=== PATIENT | female | born 1940 | race African-American/Black ===

== ENCOUNTER → 2016-12-02 | Outpatient (CLI) | payer MEDICARE, OTHER ==
[2015-05-10 10:54] VITALS: BP 165/83
[~2016-12-02] MED LIST: ATOR20TA58; ATOR40TA59; BUDE10.2; CLIN-44; GABA-585; HYDR-2666; HYDR-79; IBUP-1007; MELO-150; METF500T9; POTA10TA10; QUIN1TAB6; SITA100T
[2016-12-02 13:04] LABS: CREATININE 1.1 mg/dL (0.6-1.0); GFR 58.6
== END | disposition home or self-care (01) ==
LOC: LAB 12:14
PROVIDERS: ATTEND Psychiatry & Neurology Neurology
DX: M79.604 Pain in right leg (principal)
CPT/HCPCS: 36415; 82550; 82565; 84520

== ENCOUNTER → 2016-12-06 | Outpatient (CLI) | payer MEDICARE, OTHER ==
[2015-05-10 10:54] VITALS: BP 165/83
[~2016-12-06] MED LIST changes: +GADOBUTROL 7.5 MMOL/7.5 ML VIAL IV ONE
--- NOTE | 2016-12-06 10:42 | KCIC ---
PROCEDURE MRI lumbar spine without and with contrast HISTORY Lower extremity pain, low back pain, previous surgery TECHNIQUE Multiplanar, multi sequential pre and post contrast MR imaging was performed of the lumbar spine. Contrast: 6 cc Gadavist COMPARISON None FINDINGS Lumbar vertebral body stature is maintained. There has been posterolateral fusion with bilateral pedicle screws at L3-L4. Exam does not accurately evaluate integrity of hardware. There is negligible anterior spondylolisthesis L3-4 and L4-5. Conus terminates at T12-L1. There is moderate levoscoliosis centered about L2. There is mild degenerative disc disease L4-5 and L2-3, moderate narrowing of the L3-4 intervertebral disc space. There is edema of the L5 pedicles greater on the left. There are likely cysts of the bilateral renal pelves although difficult to entirely exclude hydronephrosis. L1-L2: There is moderate right facet degenerative change. Spinal canal is adequate. There is mild narrowing of the right neural foramen, left neural foramen adequate. L2-3: There is moderate to severe right facet degenerative change. There is mild buckling of the ligamentum flavum. There is mild narrowing of the far right lateral recess. There is mild to moderate narrowing of the right neural foramen, left neural foramen adequate. L3-4: There has been posterior decompression. Spinal canal is adequate. There is mild to moderate left and likely moderate right neural foramina compromise. L4-5: There is moderate facet degenerative change, fluid in the facet articulations bilaterally. There is mild buckling of the ligamentum flavum. There is minimal disc osteophyte complex and bulge relatively greater in the left lateral recess. There is mild left lateral recess stenosis. There is synovial cyst posterior to the left facet articulation. There is fairly severe narrowing of the left neural foramen, right neural foramen overall adequate. L5-S1: Spinal canal is adequate. There is mild to moderate facet degenerative change greater on the right. There is moderate left and mild right neural foramina compromise. IMPRESSION 1. There is moderate lumbar levoscoliosis. 2. There has been posterior decompression and posterolateral fusion at L3-4. 3. There is no significant lumbar spinal stenosis, mild left lateral recess stenosis L4-5 and mild right lateral recess stenosis L2-3. 4. There is neural foramina compromise as stated greatest on the left at L4-5, to a lesser degree bilaterally at L3-4, on the right at L2-3, and on the left at L5-S1. 5. Edema of the L5 pedicles greater on the left is more likely to be reactive/degenerative in etiology. There is multilevel lumbar facet degenerative change. 6. There are likely cysts of the renal pelves bilaterally although hydronephrosis especially on the right would be difficult to exclude. Electronically signed by: Jaron Juan MD (Dec 06, 2016 10:41:35)
== END | disposition home or self-care (01) ==
LOC: KCIC MRI 09:11
PROVIDERS: ATTEND Psychiatry & Neurology Neurology
DX: M51.36 Other intervertebral disc degeneration, lumbar region (principal); M43.16 Spondylolisthesis, lumbar region; M41.86 Other forms of scoliosis, lumbar region
CPT/HCPCS: 72158; A9585

== ENCOUNTER → 2017-05-03 | Outpatient (CLI) | payer MEDICARE, OTHER ==
[~2017-05-03] VITALS: Ht 157.5 cm; Wt 66.2 kg
[~2017-05-03] MED LIST changes: +BUPIVAC MPF-EPI 0.5%-1:200000 10 ML VIAL. INJ ONE; +BUPIVACAINE 0.5% 50 ML VIAL. IJ ONE; -CLIN-44; +CLIN150C14; -GADOBUTROL 7.5 MMOL/7.5 ML VIAL IV ONE; -HYDR-2666; +HYDR-2758; +IOHEXOL 300 MG/ML 50 ML VIAL. IART ONE; -MELO-150; +MELO15TA23; -POTA10TA10; +POTA10TA12; +TIZA4TAB PO; +methylPREDNISolone ACETATE 80 MG/ML VIAL. IM ONE
[2017-05-03 07:47] VITALS: BP 143/62
--- NOTE | 2017-05-03 10:25 | RAD ---
Indication right hip pain. Injection of the right hip, for purposes of pain management, was requested. Injection of the hip for purposes of pain management was discussed with the patient. The risks of infection and bleeding were outlined. The right femoral artery was palpated. An appropriate entry manager into the joint was marked. The anticipated trajectory of the needle was well removed from the femoral artery. The skin was prepped and draped in the routine fashion. Local anesthesia was accomplished with 1% lidocaine. A 22-gauge needle was passed fluoroscopically into the joint. Small amount of contrast was introduced confirming proper placement of the needle. Subsequently 80 mg of Depo-Medrol and 5 cc of Sensorcaine was administered into the joint. The patient tolerated the procedure unremarkably. 3 fluoroscopic images were obtained. Fluoroscopy time associated with the procedure was 0.7 minutes... IMPRESSION: Successful injection of the right hip for purposes of pain management
== END | disposition home or self-care (01) ==
LOC: RAD 07:00
PROVIDERS: ATTEND Nurse Practitioner Gerontology
DX: M16.11 Unilateral primary osteoarthritis, right hip (principal)
CPT/HCPCS: 20610; 77002; J1040; J3490; Q9967

== ENCOUNTER 2017-06-07 16:22 | Emergency (ER) | payer MEDICARE, OTHER ==
[~2017-06-07] VITALS: Ht 157.5 cm; Wt 66.7 kg
[~2017-06-07 16:22] MED LIST changes: -BUPIVAC MPF-EPI 0.5%-1:200000 10 ML VIAL. INJ ONE; -BUPIVACAINE 0.5% 50 ML VIAL. IJ ONE; -IOHEXOL 300 MG/ML 50 ML VIAL. IART ONE; +QUIN1TAB17; -QUIN1TAB6; -methylPREDNISolone ACETATE 80 MG/ML VIAL. IM ONE
[2017-06-07] MEDS ORDERED: fentaNYL PF VIAL 100 MCG/2 ML VIAL IV ONE (16:30)
[2017-06-07] MEDS ORDERED: ONDANSETRON PF 4 MG/2 ML VIAL. IV ONE (16:30)
[2017-06-07 16:47] LABS: BILIRUBIN,URINE NEGATIVE (NEG); GLUCOSE,URINE 250 mg/dL (NEG); NITRITE,URINE NEGATIVE (NEG); PH,URINE 5.5; PROTEIN,URINE NEGATIVE (NEG-TRACE); UROBILINOGEN,URINE 0.2 mg/dL (0.2 mg/dL)
[2017-06-07 16:58] LABS: BACTERIA,URINE FEW /HPF (0-FEW); RBC,URINE OCC /HPF (0-2); SQUAMOUS EPITHELIAL CELL,UR FEW /LPF
[2017-06-07 17:01] LABS: BASO % 0 % (0-3); EOS % 1 % (0-3); HEMOGLOBIN 13.2 g/dL (12.0-15.5); LYMPH # 1.2 x10^3/uL (1.0-4.8); LYMPH % 16 % (24-48); MEAN CORPUSCULAR HEMOGLOBIN 27 pg (25-35); MEAN CORPUSCULAR HGB CONC 32 g/dL (31-37); MEAN CORPUSCULAR VOLUME 84 fL (79-100); MONO % 4 % (0-9); NEUT % 79 % (31-73); PLATELET COUNT 162 x10^3/uL (140-400); RED BLOOD COUNT 4.87 x10^6/uL (3.50-5.40); RED CELL DISTRIBUTION WIDTH 15.6 % (11.5-14.5); WHITE BLOOD COUNT 7.5 x10^3/uL (4.0-11.0)
[2017-06-07 17:22] LABS: CREATININE 0.8 mg/dL (0.6-1.0); GFR 84.4; POTASSIUM 3.2 mmol/L (3.5-5.1)
[2017-06-07 17:28] LABS: ALBUMIN 3.4 g/dL (3.4-5.0); ALBUMIN/GLOBULIN RATIO 0.9 (1.0-1.7); TOTAL BILIRUBIN 0.2 mg/dL (0.2-1.0); TOTAL PROTEIN 7.2 g/dL (6.4-8.2)
--- NOTE | 2017-06-07 17:30 | PHYS DOC ---
Past Medical History Past Medical History: Arthritis, Diabetes-Type II, High Cholesterol, Hypertension, Other Additional Past Medical Histor: HYPOKALEMIA, SPINAL STENOSIS Past Surgical History: Hysterectomy, Tonsillectomy, Other Additional Past Surgical Histo: LEFT KNEE, LEFT FOOT, LEFT HAND, BACK SURGERY- SPINAL STENOSIS Alcohol Use: None Drug Use: None Adult General Chief Complaint Chief Complaint: ABDOMINAL PAIN HPI HPI Patient is a 77 year old female who presents with acute on set of lower abdominal pain starting approximately 20 minutes are to ED arrival while driving. Pain is severe and is described as sharp. It radiates to back. It is associated with nausea, no vomiting. , Chills, sweats. Patient reports constipation earlier today. Denies diarrhea. No history of AAA, dissection. No history of kidney stones. No prior abdominal surgery. Other acute symptoms or complaints. She arrives by EMS. No medications given prior to ED arrival. Review of Systems Review of Systems Review symptoms as per history of present illness. All other review symptoms are negative. Current Medications Current Medications Current Medications Medications (Trade) Dose Ordered Sig/Mina Start Time Stop Time Status Last Admin Dose Admin Fentanyl Citrate (Fentanyl 2ml Vial) 75 mcg 1X ONCE 06/07/17 16:30 06/07/17 16:31 DC 06/07/17 16:39 75 MCG Info (Do NOT chart on this entry -- for MONITORING) 1 each PRN DAILY PRN 06/07/17 17:45 06/07/17 20:40 DC Iohexol (Omnipaque 300 Mg/ml) 75 ml 1X ONCE 06/07/17 17:45 06/07/17 17:46 DC 06/07/17 17:51 75 ML Morphine Sulfate 4 mg 1X ONCE 06/07/17 17:45 06/07/17 17:47 DC 06/07/17 17:49 4 MG Ondansetron HCl (Zofran) 4 mg 1X ONCE 06/07/17 16:30 06/07/17 16:31 DC 06/07/17 16:39 4 MG Allergies Allergies Allergies Coded Allergies Type Severity Reaction Last Updated Verified cephalexin Allergy Intermediate 10/19/14 No nabumetone Allergy Intermediate 10/19/14 No Physical Exam Physical Exam Constitutional: Well developed, well nourished, moderate discomfort secondary to pain.[] Eyes: PERRLA, EOMI, conjunctiva normal, no discharge. [] Neck: Normal range of motion, no tenderness, supple, no stridor. [] Cardiovascular:Heart rate regular rhythm, no murmur [] Lungs & Thorax: Bilateral breath sounds clear to auscultation [] Abdomen: Bowel sounds normal, soft, no tenderness, nonpulsatile. [] Skin: Warm, dry. [] Back: No tenderness. [] Extremities: No tenderness, no cyanosis. [] Neurologic: Alert and oriented X 3, normal motor function, normal sensory function, no focal deficits noted. [] Psychologic: Affect normal, judgement normal, mood normal. [] Current Patient Data Vital Signs Vital Signs Date Time Temp Pulse Resp B/P (MAP) Pulse Ox O2 Delivery O2 Flow Rate FiO2 06/07/17 17:39 61 18 134/74 (94) 99 Room Air 06/07/17 16:25 98.5 98.5 Lab Values Laboratory Tests Test 06/07/17 16:30 06/07/17 16:45 Urine Collection Type Unknown Urine Color Yellow Urine Clarity Clear Urine pH 5.5 Urine Specific Gray 1.010 Urine Protein Negative mg/dL (NEG-TRACE) Urine Glucose (UA) 250 mg/dL (NEG) Urine Ketones (Stick) Negative mg/dL (NEG) Urine Blood Small (NEG) Urine Nitrite Negative (NEG) Urine Bilirubin Negative (NEG) Urine Urobilinogen Dipstick 0.2 mg/dL (0.2 mg/dL) Urine Leukocyte Esterase Negative (NEG) Urine RBC Occ /HPF (0-2) Urine WBC 1-4 /HPF (0-4) Urine Squamous Epithelial Cells Few /LPF Urine Bacteria Few /HPF (0-FEW) White Blood Count 7.5 x10^3/uL (4.0-11.0) Red Blood Count 4.87 x10^6/uL (3.50-5.40) Hemoglobin 13.2 g/dL (12.0-15.5) Hematocrit 41.0 % (36.0-47.0) Mean Corpuscular Volume 84 fL (79-100) Mean Corpuscular Hemoglobin 27 pg (25-35) Mean Corpuscular Hemoglobin Concent 32 g/dL (31-37) Red Cell Distribution Width 15.6 % (11.5-14.5) H Platelet Count 162 x10^3/uL (140-400) Neutrophils (%) (Auto) 79 % (31-73) H Lymphocytes (%) (Auto) 16 % (24-48) L Monocytes (%) (Auto) 4 % (0-9) Eosinophils (%) (Auto) 1 % (0-3) Basophils (%) (Auto) 0 % (0-3) Neutrophils # (Auto) 5.9 x10^3uL (1.8-7.7) Lymphocytes # (Auto) 1.2 x10^3/uL (1.0-4.8) Monocytes # (Auto) 0.3 x10^3/uL (0.0-1.1) Eosinophils # (Auto) 0.1 x10^3/uL (0.0-0.7) Basophils # (Auto) 0.0 x10^3/uL (0.0-0.2) Sodium Level 139 mmol/L (136-145) Potassium Level 3.2 mmol/L (3.5-5.1) L Chloride Level 105 mmol/L (98-107) Carbon Dioxide Level 27 mmol/L (21-32) Anion Gap 7 (6-14) Blood Urea Nitrogen 13 mg/dL (7-20) Creatinine 0.8 mg/dL (0.6-1.0) Estimated GFR (Cockcroft-Gault) 84.4 BUN/Creatinine Ratio 16 (6-20) Glucose Level 184 mg/dL (70-99) H Calcium Level 9.0 mg/dL (8.5-10.1) Total Bilirubin 0.2 mg/dL (0.2-1.0) Aspartate Amino Transferase (AST) 38 U/L (15-37) H Alanine Aminotransferase (ALT) 47 U/L (14-59) Alkaline Phosphatase 140 U/L (46-116) H Total Protein 7.2 g/dL (6.4-8.2) Albumin 3.4 g/dL (3.4-5.0) Albumin/Globulin Ratio 0.9 (1.0-1.7) L Lipase 195 U/L (73-393) Laboratory Tests 06/07/17 16:45 Laboratory Tests 06/07/17 16:45 EKG EKG [] Radiology/Procedures Radiology/Procedures [CT abdomen pelvis: Prominence of intrahepatic, extrahepatic bile ducts along with the main pancreatic duct is seen without underlying mass lesion identified per radiology report.] Course & Med Decision Making Course & Med Decision Making Pertinent Labs and Imaging studies reviewed. (See chart for details) [Patient with acute on set abdominal pain resolved while in the emergency Department. Patient's abdomen remains soft, nonsurgical. CT abdomen and pelvis reveals cystic structure on left lobe of liver possible hemangioma and dilated hepatic duct system. No evidence of obstruction or mass lesion. Patient's alk phosphatase is minimally elevated raising the possibility of passed common bile duct stone versus unknown etiology. Given patient's improvement and otherwise stable CT and labs, the patient will be discharged home with supportive care and instructions to follow-up with PCP for further evaluation and review of imaging and lab studies performed in the emergency department. Return precautions reviewed. Patient verbalizes understanding and agreement with discharge instructions prior to departure.] Dragon Disclaimer Dragon Disclaimer This electronic medical record was generated, in whole or in part, using a voice recognition dictation system. Departure Departure Impression: Primary Impression: Abdominal pain Additional Impression: Abnormal computed tomography of abdomen and pelvis Disposition: 01 HOME, SELF-CARE Condition: GOOD Referrals: UNKNOWN PCP NAME (PCP) Problem Qualifiers TIEN SALCEDO DO Jun 07, 2017 17:30
[2017-06-07 17:39] VITALS: BP 134/74
[2017-06-07] MEDS ORDERED: CONTRAST GIVEN MC PRN (17:45)
[2017-06-07] MEDS ORDERED: IOHEXOL 300 MG/ML 75 ML VIAL IV ONE (17:45)
[2017-06-07] MEDS ORDERED: MORPHINE SULFATE 4 MG/ML DISP.SYRIN. IV ONE (17:45)
--- NOTE | 2017-06-07 18:42 | RAD ---
CT scan of the abdomen and pelvis with contrast 06/07/2017 CLINICAL HISTORY: Sudden onset of lower abdominal pain. TECHNIQUE: After the intravenous administration of 75 cc of Omnipaque 300, contiguous, 5 mm axial sections were obtained through the abdomen and pelvis. One or more of the following individualized dose reduction techniques were utilized for this study: 1. Automated exposure control. 2. Adjustment of the mA and/or kV according to patient size. 3. Use of iterative reconstruction technique. FINDINGS: No previous imaging studies are available for comparison. Images through the lung bases demonstrate minimal dependent subsegmental atelectasis bilaterally. A 2.6 cm rounded low-attenuation structure is seen involving the left lobe of the liver, inferiorly. This demonstrates peripheral nodular enhancement and likely represents a hemangioma. Prominence of the intrahepatic bile ducts is seen centrally. The common bile duct is prominent measuring 8 mm in diameter. The spleen and adrenal glands are within normal limits. Prominence of the main pancreatic duct is noted. No focal abnormality of the pancreas is definitely seen. Parapelvic cysts are seen involving both kidneys, left greater than right. Mild atherosclerotic calcification abdominal aorta is seen. The abdominal aorta tapers normally. There is a small fat-containing umbilical hernia which measures 2.5 cm in size. Air and stool seen throughout the colon. There is no definite evidence of bowel obstruction. The gallbladder is slightly contracted. No free fluid or free air is seen within the abdomen. Images through the pelvis demonstrate the urinary bladder distended with urine. Calcifications are seen within the pelvis consistent with phleboliths. No free fluid is seen. The patient appears to be post hysterectomy. Moderate to severe S-shaped scoliosis of the thoracolumbar spine is seen. The patient is post laminectomy and posterolateral fusion using stabilizing brackets and pedicle screws at L3-4. Degenerative changes are seen involving the lower thoracic and throughout the lumbar spine and both hips. IMPRESSION: 1. Prominence of the intrahepatic and extrahepatic bile ducts along with the main pancreatic duct is seen no underlying mass lesion is definitely seen. 2. No acute abnormality is definitely seen. Electronically signed by: Louis Maciel MD (06/07/2017 6:39 PM) [facility]
--- NOTE | 2017-06-08 07:48 | RAD ---
Portable chest, 06/07/2017: History: Shortness of breath, nausea Comparison is made to a study from 10/19/2014. There is deformity of the thoracic cage due to a moderate thoracic scoliosis. The heart is at the upper limits of normal in size. The pulmonary vascularity is normal. There is minimal linear basilar atelectasis and/or scarring. The upper lung del rosario are clear. There is no evidence of pleural fluid. Surgical fixation devices are partially visualized in the upper lumbar spine. IMPRESSION: Minimal bibasilar linear atelectasis and/or scarring.
== END 2017-06-07 20:40 | disposition home or self-care (01) ==
LOC: ER 16:22
DX: R93.5 Abnormal findings on diagnostic imaging of other abdominal regions, including retroperitoneum (principal); R10.30 Lower abdominal pain, unspecified; R11.0 Nausea; K59.00 Constipation, unspecified; E11.9 Type 2 diabetes mellitus without complications; M19.90 Unspecified osteoarthritis, unspecified site; E78.00 Pure hypercholesterolemia, unspecified; I10 Essential (primary) hypertension; Z88.1 Allergy status to other antibiotic agents; Z88.8 Allergy status to other drugs, medicaments and biological substances
CPT/HCPCS: 36415; 71010; 74177; 80053; 81001; 83690; 85025; 96374; 96375; 99285; J2270; J2405; J3010; Q9967

== ENCOUNTER → 2017-09-05 | Outpatient (CLI) | payer MEDICARE, OTHER ==
[2017-09-05 11:55] LABS: IONIZED CALCIUM 1.28 mmol/L (1.13-1.32)
== END | disposition home or self-care (01) ==
LOC: LAB 11:29
DX: M47.9 Spondylosis, unspecified (principal)
CPT/HCPCS: 36415; 82306; 82310

== ENCOUNTER → 2019-03-13 | Outpatient (CLI) | payer MEDICARE ==
[~2019-03-13] MED LIST changes: +ASPI325T11 PO; +CALC-98 PO; +GABA600T7 PO; -HYDR-2758; +HYDR-2761; -HYDR-79; +HYDROCODONE-IB1 EAC3; +METF10007 PO; +QUIN20TA17 PO
[2019-03-13 14:42] LABS: BASO % 0 % (0-3); EOS # 0.1 x10^3/uL (0.0-0.7); EOS % 1 % (0-3); HEMATOCRIT 40.1 % (36.0-47.0); HEMOGLOBIN 13.3 g/dL (12.0-15.5); LYMPH # 1.7 x10^3/uL (1.0-4.8); LYMPH % 32 % (24-48); MEAN CORPUSCULAR HEMOGLOBIN 29 pg (25-35); MEAN CORPUSCULAR HGB CONC 33 g/dL (31-37); MEAN CORPUSCULAR VOLUME 86 fL (79-100); MONO # 0.6 x10^3/uL (0.0-1.1); MONO % 11 % (0-9); NEUT # 2.9 x10^3/uL (1.8-7.7); NEUT % 55 % (31-73); PLATELET COUNT 217 x10^3/uL (140-400); RED BLOOD COUNT 4.66 x10^6/uL (3.50-5.40); RED CELL DISTRIBUTION WIDTH 14.1 % (11.5-14.5); WHITE BLOOD COUNT 5.3 x10^3/uL (4.0-11.0)
[2019-03-13 14:55] LABS: ALBUMIN 3.4 g/dL (3.4-5.0); CALCIUM 9.7 mg/dL (8.5-10.1); CREATININE 0.9 mg/dL (0.6-1.0); GFR 73.3; POTASSIUM 3.7 mmol/L (3.5-5.1)
[2019-03-13 15:00] LABS: BILIRUBIN,URINE NEGATIVE (NEG); CLARITY,URINE CLEAR; COLOR,URINE YELLOW; NITRITE,URINE NEGATIVE (NEG); PH,URINE 6.5; PROTEIN,URINE NEGATIVE (NEG-TRACE); UROBILINOGEN,URINE 0.2 mg/dL (0.2 mg/dL)
[2019-03-13 15:11] LABS: RBC,URINE 0 /HPF (0-2); WBC,URINE RARE /HPF (0-4)
[2019-03-13 15:12] LABS: SQUAMOUS EPITHELIAL CELL,UR OCC /LPF
--- NOTE | 2019-03-13 15:22 | RAD ---
Indication:Preop evaluation for hip surgery. TECHNIQUE: PA and lateral views of the chest COMPARISON: 06/07/2017. FINDINGS: Moderate S-shaped scoliosis is seen of the thoracal lumbar spine. Heart is normal in size. Lungs are clear. No pneumothorax or pleural effusion. Visualized bony thorax is within normal limits. IMPRESSION: No acute pulmonary process. Electronically signed by: Rohit Charles DO (03/13/2019 3:19 PM) [facility]
[2019-03-14 04:08] LABS: HEMOGLOBIN A1C 6.6 % (4.8-5.6)
== END | disposition home or self-care (01) ==
LOC: SURGPAT 13:29
PROVIDERS: ATTEND Orthopaedic Surgery
DX: Z01.818 Encounter for other preprocedural examination (principal); M16.11 Unilateral primary osteoarthritis, right hip; M41.85 Other forms of scoliosis, thoracolumbar region; Z88.8 Allergy status to other drugs, medicaments and biological substances
CPT/HCPCS: 36415; 71046; 80048; 81001; 82040; 82306; 83036; 85025; 85610; 85651; 85730; 87641

== ENCOUNTER → 2019-05-30 | Outpatient (CLI) | payer MEDICARE, OTHER ==
[~2019-05-30] MED LIST changes: +CONTRAST GIVEN. MC PRN; +IOHEXOL 350 MG/ML 100 ML VIAL. IV ONE; +METF500T11; -METF500T9; -TIZA4TAB PO; +TIZA4TAB2 PO
--- NOTE | 2019-05-30 13:43 | RAD ---
CTA abdomen and pelvis with bilateral lower extremity runoffs, compared to CT of the abdomen and pelvis dated June 072016 for peripheral arterial disease. TECHNIQUE: Contiguous helical axial images are obtained from the apex of diaphragm to the feet following administration of IV contrast in the arterial phase. Sagittal and coronal MIPS reconstructions are evaluated as are 3d volume rendered images of the vasculature Nonvascular findings: There is patchy atelectasis of the lung bases. There is been interval migration of a large segment of distal small bowel and proximal colon into the perihepatic space, with displacement of the liver inferiorly and medially. This is of doubtful clinical significance. Evaluation of the hollow viscus structures is limited by lack of oral contrast and arterial phase imaging, however no areas of gross bowel wall thickening or bowel dilatation identified. There is redemonstration of a 3.2 cm mass in the left lobe of the liver which has imaging characteristics suggestive of hemangioma. This is grossly stable. No other hepatic parenchymal abnormalities. The pancreas, spleen, bilateral adrenal glands, and gallbladder are all grossly unremarkable. Renal parenchyma is well perfused, though the cortex is somewhat thin, and has grown thinner since the prior examination. Bilateral parapelvic cysts are noted. No free or loculated fluid collections are seen within the abdomen or pelvis. The urinary bladder is only partially fluid distended but is grossly unremarkable. Prostate is mildly enlarged with no central calcifications. There are small bilateral suprapatellar joint effusions. There are severe degenerative changes of both knees as well as the right hip. Minimal degenerative changes of the left hip. Multilevel degenerative changes of the spine are present with postsurgical changes of lumbar spine as well. No suspicious osteoblastic or osteolytic bone lesions are identified in any distribution. Vascular findings: The aorta is nonaneurysmal. There is only mild atherosclerosis involving the aortoiliac arteries, with no significant stenosis involving the celiac, superior mesenteric, inferior mesenteric, or bilateral renal arteries. There is some beadlike irregularity of the distal celiac artery which may represent focal fibromuscular dysplasia. In the presence of a widely patent superior mesenteric artery, this is of doubtful clinical significance. Both hypogastric arteries are widely patent as well. Bilateral common iliac, external iliac, and common femoral arteries are patent. Arterial flow to the legs bilaterally symmetrical, with wide patency of the common femoral, profunda femoral, superficial femoral, and popliteal arteries providing in-line flow to a patent tibial peroneal trunk and dominant peroneal runoff vessel to the ankle. There are small anterior and posterior tibial arteries bilaterally which are patent proximally and remain patent to the level of the mid calf, but are not seen below this level either due to occlusion or hypoplasia. Pedal vessels are not enhanced. IMPRESSION: 1. Minimal atherosclerosis with no significant stenosis involving the aortoiliac or femoropopliteal arteries. 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 Pedal vessels are not seen. No significant stenoses identified and no aneurysms are seen. 2. Stable left hepatic hemangioma. 3. Stable appearing bilateral peripelvic cysts. 4. Severe osteoarthritis of the knees with bilateral suprapatellar joint effusions. Osteoarthritis of the right hip is also noted. 5. Severe degenerative and postsurgical changes throughout the lumbar spine. 6. Other chronic changes as described. PQRS Compliance Statement: One or more of the following individualized dose reduction techniques were utilized for this examination: 1. Automated exposure control 2. Adjustment of the mA and/or kV according to patient size 3. Use of iterative reconstruction technique Electronically signed by: Price Montana MD (05/30/2019 1:40 PM) [id number]
== END | disposition home or self-care (01) ==
LOC: CT 07:09
PROVIDERS: ATTEND Family Medicine
DX: I70.0 Atherosclerosis of aorta (principal); J98.11 Atelectasis; M16.11 Unilateral primary osteoarthritis, right hip; D18.09 Hemangioma of other sites; M47.896 Other spondylosis, lumbar region
CPT/HCPCS: 75635; Q9967

== ENCOUNTER 2019-11-11 08:23 | Emergency (ER) | payer MEDICARE, OTHER ==
[~2019-11-11] VITALS: Ht 157.5 cm; Wt 65.0 kg
[~2019-11-11 08:23] MED LIST changes: -CONTRAST GIVEN. MC PRN; -IOHEXOL 350 MG/ML 100 ML VIAL. IV ONE; -POTA10TA12; +POTASSIUM CHLO10 ME1
[2019-11-11] MEDS ORDERED: DEXAMETHASONE SOD PHOS 20 MG/5 ML VIAL. IV ONE (08:45)
[2019-11-11] MEDS ORDERED: oxyCODONE/APAP 5/325 1 TAB TABLET PO ONE (08:45)
[2019-11-11] MEDS ORDERED: ASPIRIN CHEWABLE 81 MG TABLET. PO ONE (08:45)
--- NOTE | 2019-11-11 08:53 | PHYS DOC ---
Past Medical History Past Medical History: Arthritis, Diabetes-Type II, High Cholesterol, Hypertension, Other Additional Past Medical Histor: HYPOKALEMIA, SPINAL STENOSIS Past Surgical History: Hysterectomy, Tonsillectomy, Other Additional Past Surgical Histo: LEFT KNEE, LEFT FOOT, LEFT HAND, BACK SURGERY- SPINAL STENOSIS Smoking Status: Former Smoker Alcohol Use: None Drug Use: None Adult General Chief Complaint Chief Complaint: CHEST PAIN HPI HPI Patient is a 79-year-old female who presents with left arm pain today. She states the pain is sharp and extends from her shoulder down into her hand. She states this is been going on for approximately one week but worse this morning. She states she is unable to lay on her left shoulder secondary to increasing the pain. She denies any neck pain or decreased range of motion in her neck. She states moving her arm makes the symptoms worse. She denies any chest pain shortness of breath or dyspnea on exertion. She denies any nausea or diaphoresis. She does not recall any injury to the arm.[] Review of Systems Review of Systems Constitutional: Denies fever or chills [] Eyes: Denies change in visual acuity, redness, or eye pain [] HENT: Denies nasal congestion or sore throat [] Respiratory: Denies cough or shortness of breath [] Cardiovascular: No additional information not addressed in HPI [] GI: Denies abdominal pain, nausea, vomiting, bloody stools or diarrhea [] : Denies dysuria or hematuria [] Musculoskeletal: As described in the history of present illness[] Integument: Denies rash or skin lesions [] Neurologic: Denies headache, focal weakness or sensory changes [] Endocrine: Denies polyuria or polydipsia [] All other systems were reviewed and found to be within normal limits, except as documented in this note. Current Medications Current Medications Current Medications Medications (Trade) Dose Ordered Sig/Mina Start Time Stop Time Status Last Admin Dose Admin Aspirin (Children'S Aspirin) 324 mg 1X ONCE 11/11/19 08:45 11/11/19 08:50 DC 11/11/19 08:45 324 MG Dexamethasone Sodium Phosphate (Decadron) 10 mg 1X ONCE 11/11/19 08:45 11/11/19 08:50 DC 11/11/19 08:45 10 MG Oxycodone/ Acetaminophen (Percocet 5/325) 2 tab 1X ONCE 11/11/19 08:45 11/11/19 08:50 DC 11/11/19 08:45 2 TAB Allergies Allergies Allergies Coded Allergies Type Severity Reaction Last Updated Verified cephalexin Allergy Intermediate 03/13/19 No nabumetone Allergy Intermediate 03/26/19 No Physical Exam Physical Exam Constitutional: Well developed, well nourished, mild to distress, non-toxic appearance. [] HENT: Normocephalic, atraumatic, bilateral external ears normal, oropharynx moist, no oral exudates, nose normal. [] Eyes: PERRLA, EOMI, conjunctiva normal, no discharge. [] Neck: Normal range of motion, no tenderness, supple, no stridor. [] Cardiovascular:Heart rate regular rhythm, no murmur [] Lungs & Thorax: Bilateral breath sounds clear to auscultation [] Abdomen: Bowel sounds normal, soft, no tenderness, no masses, no pulsatile masses. [] Skin: Warm, dry, no erythema, no rash. [] Back: No tenderness, no CVA tenderness. [] Extremities: Decreased range of motion left arm secondary to pain with movement in the shoulder. [] Neurologic: Alert and oriented X 3, normal motor function, normal sensory function, no focal deficits noted. [] Psychologic: Anxious[] Current Patient Data Vital Signs Vital Signs Date Time Temp Pulse Resp B/P (MAP) Pulse Ox O2 Delivery O2 Flow Rate FiO2 11/11/19 10:30 58 18 132/62 (85) 96 Room Air 11/11/19 08:48 97.8 97.8 Lab Values Laboratory Tests Test 11/11/19 08:40 White Blood Count 5.5 x10^3/uL (4.0-11.0) Red Blood Count 4.86 x10^6/uL (3.50-5.40) Hemoglobin 13.1 g/dL (12.0-15.5) Hematocrit 40.9 % (36.0-47.0) Mean Corpuscular Volume 84 fL (79-100) Mean Corpuscular Hemoglobin 27 pg (25-35) Mean Corpuscular Hemoglobin Concent 32 g/dL (31-37) Red Cell Distribution Width 15.0 % (11.5-14.5) H Platelet Count 200 x10^3/uL (140-400) Neutrophils (%) (Auto) 36 % (31-73) Lymphocytes (%) (Auto) 48 % (24-48) Monocytes (%) (Auto) 12 % (0-9) H Eosinophils (%) (Auto) 3 % (0-3) Basophils (%) (Auto) 0 % (0-3) Neutrophils # (Auto) 2.0 x10^3/uL (1.8-7.7) Lymphocytes # (Auto) 2.6 x10^3/uL (1.0-4.8) Monocytes # (Auto) 0.7 x10^3/uL (0.0-1.1) Eosinophils # (Auto) 0.2 x10^3/uL (0.0-0.7) Basophils # (Auto) 0.0 x10^3/uL (0.0-0.2) Prothrombin Time 12.5 SEC (11.7-14.0) Prothrombin Time INR 1.0 (0.8-1.1) Sodium Level 142 mmol/L (136-145) Potassium Level 4.2 mmol/L (3.5-5.1) Chloride Level 106 mmol/L (98-107) Carbon Dioxide Level 28 mmol/L (21-32) Anion Gap 8 (6-14) Blood Urea Nitrogen 16 mg/dL (7-20) Creatinine 0.8 mg/dL (0.6-1.0) Estimated GFR (Cockcroft-Gault) 83.9 BUN/Creatinine Ratio 20 (6-20) Glucose Level 112 mg/dL (70-99) H Calcium Level 9.3 mg/dL (8.5-10.1) Total Bilirubin 0.3 mg/dL (0.2-1.0) Aspartate Amino Transferase (AST) 25 U/L (15-37) Alanine Aminotransferase (ALT) 27 U/L (14-59) Alkaline Phosphatase 105 U/L (46-116) Troponin I Quantitative < 0.017 ng/mL (0.000-0.055) Total Protein 6.7 g/dL (6.4-8.2) Albumin 3.5 g/dL (3.4-5.0) Albumin/Globulin Ratio 1.1 (1.0-1.7) Laboratory Tests 11/11/19 08:40 Laboratory Tests 11/11/19 08:40 EKG EKG EKG: Normal sinus rhythm rate of [address]-T changes[] Radiology/Procedures Radiology/Procedures [] Impressions: REASON: angina PROCEDURE: CHEST AP ONLY EXAM: Chest, single view. HISTORY: Angina. COMPARISON: 03/13/2019 FINDINGS: A frontal view of the chest obtained. There is suspected bilateral lower lobe atelectasis. There is no consolidation, pleural effusion or pneumothorax. There is a stable cardiac silhouette. There is severe S-shaped rotatory scoliosis of the thoracolumbar spine. There is lucency under the right hemidiaphragm due to interposition of colon superior to the liver. There is partial visualization of spinal fusion instrumentation. IMPRESSION: Bilateral lower lobe atelectasis. Course & Med Decision Making Course & Med Decision Making Pertinent Labs and Imaging studies reviewed. (See chart for details) [ED course: Evaluation reveals a 79-year-old female with left arm pain it's been ongoing and constant for about a week. The pain sounds radicular to me. We did do a cardiac evaluation which did not reveal any evidence of cardiac in volvement. I'll provide the patient with some anti-inflammatory medicine to take to see if this helps calm down her nerve pain as well as some pain medication to take at home. I've encouraged her to follow with her primary care physician with potential referral for an EMG.] Dragon Disclaimer Dragon Disclaimer This electronic medical record was generated, in whole or in part, using a voice recognition dictation system. Departure Departure Impression: Primary Impression: Cervical radiculopathy Disposition: HOME, SELF-CARE Condition: STABLE Scripts Hydrocodone/Apap 5-325 (NORCO 5-325 TABLET) 1 Each Tablet 1 TAB PO PRN Q6HRS PRN for PAIN, #15 TAB 0 Refills Prov: GUNNAR HUGO DO 11/11/19 Methylprednisolone (MEDROL) 4 Mg Tab.ds.pk 1 PKG PO UD for arthritis, #1 PKG Prov: GUNNAR HUGO DO 11/11/19 GUNNAR HUGO DO Nov 11, 2019 08:53
--- NOTE | 2019-11-11 09:03 | RAD ---
EXAM: Chest, single view. HISTORY: Angina. COMPARISON: 03/13/2019 FINDINGS: A frontal view of the chest obtained. There is suspected bilateral lower lobe atelectasis. There is no consolidation, pleural effusion or pneumothorax. There is a stable cardiac silhouette. There is severe S-shaped rotatory scoliosis of the thoracolumbar spine. There is lucency under the right hemidiaphragm due to interposition of colon superior to the liver. There is partial visualization of spinal fusion instrumentation. IMPRESSION: Bilateral lower lobe atelectasis. Electronically signed by: Amarilis Grossman MD (11/11/2019 9:00 AM) [id number]
[2019-11-11 10:17] LABS: CALCIUM 9.3 mg/dL (8.5-10.1); CREATININE 0.8 mg/dL (0.6-1.0); GFR 83.9; POTASSIUM 4.2 mmol/L (3.5-5.1)
[2019-11-11 10:29] LABS: ALBUMIN 3.5 g/dL (3.4-5.0); ALBUMIN/GLOBULIN RATIO 1.1 (1.0-1.7); TOTAL BILIRUBIN 0.3 mg/dL (0.2-1.0); TOTAL PROTEIN 6.7 g/dL (6.4-8.2)
[2019-11-11 10:30] VITALS: BP 132/62
[2019-11-11] MEDS ORDERED: METH4TAB2 PO (10:31)
[2019-11-11] MEDS ORDERED: HYDR-3164 PO (10:31)
[2019-11-11 10:41] LABS: BASO % 0 % (0-3); EOS # 0.2 x10^3/uL (0.0-0.7); EOS % 3 % (0-3); HEMATOCRIT 40.9 % (36.0-47.0); HEMOGLOBIN 13.1 g/dL (12.0-15.5); LYMPH # 2.6 x10^3/uL (1.0-4.8); LYMPH % 48 % (24-48); MEAN CORPUSCULAR HEMOGLOBIN 27 pg (25-35); MEAN CORPUSCULAR HGB CONC 32 g/dL (31-37); MEAN CORPUSCULAR VOLUME 84 fL (79-100); MONO # 0.7 x10^3/uL (0.0-1.1); MONO % 12 % (0-9); NEUT % 36 % (31-73); PLATELET COUNT 200 x10^3/uL (140-400); RED BLOOD COUNT 4.86 x10^6/uL (3.50-5.40); WHITE BLOOD COUNT 5.5 x10^3/uL (4.0-11.0)
[2019-11-11 11:14] LABS: PROTHROMBIN TIME PATIENT 12.5 SEC (11.7-14.0)
--- NOTE | 2019-11-11 19:18 | EKG ---
[facility] [address] [place] [address] Test Date: 2019-11-11 Test Time: 08:35:31 Pat Name: NELA STARR Department: Room: Gender: F Risk Mgr: TINO : 1940 Requested By: GUNNAR HUGO Order Number: [id number] Reading MD: Measurements Intervals [place] Rate: 75 P: [place]: QRS: -24 QRSD: 82 T: 42 QT: 388 QTc: 435 Interpretive Statements SINUS RHYTHM LEFTWARD AXIS QRS(T) CONTOUR ABNORMALITY CONSISTENT WITH ANTEROSEPTAL INFARCT AGE UNDETERMINED ABNORMAL ECG No previous ECG available for comparison
== END 2019-11-11 10:37 | disposition home or self-care (01) ==
LOC: ER 08:23
DX: M54.12 Radiculopathy, cervical region (principal); R07.89 Other chest pain; E78.00 Pure hypercholesterolemia, unspecified; E11.9 Type 2 diabetes mellitus without complications; I10 Essential (primary) hypertension; M19.90 Unspecified osteoarthritis, unspecified site; Z87.891 Personal history of nicotine dependence; Z98.890 Other specified postprocedural states; Z88.1 Allergy status to other antibiotic agents; Z88.8 Allergy status to other drugs, medicaments and biological substances
CPT/HCPCS: 36415; 71045; 80053; 84484; 85025; 85610; 93005; 96374; 99285; J1100

== ENCOUNTER → 2020-02-13 | Outpatient (CLI) | payer MEDICARE ==
[~2020-02-13] MED LIST changes: +ASPI-612 PO; +GABA-689 PO; +HYDR-3164 PO; +HYDR12.575 PO; +METF-658; -METF500T11; +METH4TAB2 PO; +QUIN40TA16 PO
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
== END ==
LOC: KCIC 09:00
PROVIDERS: ATTEND Family Medicine
DX: M47.812 Spondylosis without myelopathy or radiculopathy, cervical region (principal); M48.02 Spinal stenosis, cervical region
CPT/HCPCS: 72040

== ENCOUNTER → 2020-03-12 | Outpatient (CLI) | payer MEDICARE ==
[2020-03-12 14:21] LABS: BASO % 1 % (0-3); EOS # 0.1 x10^3/uL (0.0-0.7); EOS % 1 % (0-3); HEMATOCRIT 41.9 % (36.0-47.0); HEMOGLOBIN 13.6 g/dL (12.0-15.5); LYMPH # 1.8 x10^3/uL (1.0-4.8); LYMPH % 40 % (24-48); MEAN CORPUSCULAR HEMOGLOBIN 27 pg (25-35); MEAN CORPUSCULAR HGB CONC 32 g/dL (31-37); MEAN CORPUSCULAR VOLUME 85 fL (79-100); MONO # 0.5 x10^3/uL (0.0-1.1); MONO % 11 % (0-9); NEUT # 2.2 x10^3/uL (1.8-7.7); NEUT % 48 % (31-73); PLATELET COUNT 195 x10^3/uL (140-400); RED BLOOD COUNT 4.94 x10^6/uL (3.50-5.40); RED CELL DISTRIBUTION WIDTH 14.4 % (11.5-14.5); WHITE BLOOD COUNT 4.7 x10^3/uL (4.0-11.0)
[2020-03-12 14:30] LABS: PROTHROMBIN TIME PATIENT 13.6 SEC (11.7-14.0)
[2020-03-12 14:42] LABS: ALBUMIN 3.6 g/dL (3.4-5.0); C-REACTIVE PROTEIN 1.6 mg/L (0-3.3); GFR 64.7; POTASSIUM 3.7 mmol/L (3.5-5.1)
[2020-03-13 01:09] LABS: HEMOGLOBIN A1C 6.9 % (4.8-5.6)
== END ==
LOC: SURGPAT 12:59
PROVIDERS: ATTEND Orthopaedic Surgery
DX: Z01.818 Encounter for other preprocedural examination (principal); Z11.59 Encounter for screening for other viral diseases; M16.11 Unilateral primary osteoarthritis, right hip; Z88.8 Allergy status to other drugs, medicaments and biological substances; I73.9 Peripheral vascular disease, unspecified; E11.9 Type 2 diabetes mellitus without complications; G45.9 Transient cerebral ischemic attack, unspecified; Z79.899 Other long term (current) drug therapy
CPT/HCPCS: 36415; 80048; 82040; 82306; 83036; 85025; 85610; 85730; 86140; 87641; U0003

== ENCOUNTER 2020-03-18 05:43 | Inpatient (IN) | payer MEDICARE ==
[2020-03-18] VITALS (8 sets, daily range): BP systolic 109–143; BP diastolic 66–85
[~2020-03-18] VITALS: Ht 154.9 cm; Wt 68.2 kg
[~2020-03-18 05:43] MED LIST changes: -ASPI-612 PO; +ASPI-886 PO; +CEFAZOLIN SODIUM IV PRN; +NORMAL SALINE IV PRN
[2020-03-18] MEDS ORDERED: diphenhydrAMINE HCL 25 MG CAPSULE PO PRN (06:00)
[2020-03-18] MEDS ORDERED: MORPHINE SULFATE 5 MG, KETOROLAC 30MG VIAL 30 MG, ROPIVacaine 0.5% PF 60 ML, EPINEPHrin... INT ART ONE (06:00)
[2020-03-18] MEDS ORDERED: TRANEXAMIC ACID 1,000 MG in IV NORMAL SALINE 50ML 50 ML INJ ONE ×2 (06:00→08:00)
[2020-03-18] MEDS ORDERED: IV RINGERS,LACTATED 1000ML 1,000 ML IV SCH ×2 (07:00→09:27)
[2020-03-18] MEDS ORDERED: PROCHLORPERAZINE 10 MG/2 ML VIAL. IV PRN (07:00)
[2020-03-18] MEDS ORDERED: ONDANSETRON PF 4 MG/2 ML VIAL. IV PRN (07:00)
[2020-03-18 07:15] LABS: PROTHROMBIN TIME PATIENT 13.6 SEC (11.7-14.0)
[2020-03-18] MEDS ORDERED: ACETAMINOPHEN 500 MG TABLET PO ONE (07:15)
[2020-03-18] MEDS ORDERED: GABAPENTIN 300 MG CAPSULE. PO SCH (07:15)
[2020-03-18] MEDS: IV NORMAL SALINE 1000ML BAG 1,000 ML IV SCH (07:19)
[2020-03-18] MEDS ORDERED: LIDOCAINE 2% PF 5 ML VIAL. ONE (07:20)
[2020-03-18] MEDS ORDERED: PROPOFOL 10 MG/ML (20ML) VIAL. IV ONE (07:20)
[2020-03-18] MEDS ORDERED: ROCURONIUM 50 MG/5 ML VIAL. ONE (07:20)
[2020-03-18] MEDS ORDERED: SEVOFLURANE 61 TO 120 MINUTES. IH ONE (07:20)
[2020-03-18] MEDS ORDERED: PHENYLEPHRINE in 0.9% NACL PF 1 MG/10 ML SYRINGE. IV ONE (07:20)
[2020-03-18] MEDS ORDERED: PROCHLORPERAZINE 5 MG TABLET. PO PRN (07:30)
[2020-03-18] MEDS: NORMAL SALINE IV PRN (07:30)
[2020-03-18] MEDS ORDERED: fentaNYL PF VIAL 100 MCG/2 ML VIAL IVP PRN (07:30)
[2020-03-18] MEDS ORDERED: 0.9 % SODIUM CHLORIDE 10 ML DISP.SYRIN. IV PRN (07:30)
[2020-03-18] MEDS ORDERED: DEXTROSE 50% 25 GM / 50ML DISP.SYRIN. IV PRN (07:30)
[2020-03-18] MEDS ORDERED: ZOLPIDEM 5 MG TABLET. PO PRN (07:30)
[2020-03-18] MEDS ORDERED: diphenhydrAMINE 50 MG/ML VIAL IVP PRN (07:30)
[2020-03-18] MEDS ORDERED: CALCIUM CARBONATE 500 MG TAB.CHEW PO PRN (07:30)
[2020-03-18] MEDS: CEFAZOLIN SODIUM IV PRN (07:30)
[2020-03-18] MEDS ORDERED: GABAPENTIN 300 MG CAPSULE. PO ONE (07:30)
[2020-03-18] MEDS: ceFAZolin SODIUM IV Push 1 GM VIAL. IVP SCH ×3 (07:40→19:30)
--- NOTE | 2020-03-18 07:50 | HP ---
ADMIT DATE: 03/18/2020 CHIEF COMPLAINT: Right hip pain. HISTORY OF PRESENT ILLNESS: The patient has had ongoing nonoperative treatment unsuccessfully for degenerative joint disease of the right hip and right hip pain and complains over the past several months of the right hip locking up if she is standing for a longer time like moving in a checkout line, it is hard to get moving again. She is also followed at [facility] for spinal stenosis and had previous injections in her back and a previous injection in her right hip had not helped her at all. PAST MEDICAL HISTORY: Diabetes, hypertension, hyperlipidemia, hypercholesterolemia, spinal stenosis and scoliosis. MEDICATION LIST: Reviewed. ALLERGIES: INCLUDE KEFLEX, WHICH IS A LONGSTANDING ALLERGY, SHE THOUGHT THERE MIGHT HAVE BEEN SOME TYPE OF RASH OR HIVES, AND CANNOT TOLERATE NABUMETONE. SOCIAL HISTORY: She is here today with her daughter; otherwise, active and ambulates independently. Denies tobacco, alcohol or drug use. REVIEW OF SYSTEMS: No recent medical illnesses, fever, chills, chest pain, shortness of breath or other constitutional symptoms aside from the chronic spinal stenosis symptoms and the right hip symptoms. PHYSICAL EXAMINATION: GENERAL: This is a pleasant, cooperative 80-year-old female, alert and oriented, no acute distress. Height 61 inches and weight about 150 pounds. VITAL SIGNS: Per admission sheet. HEENT: Atraumatic, normocephalic. HEART: Regular rate and rhythm. LUNGS: Clear to auscultation bilaterally. ABDOMEN: Benign. MUSCULOSKELETAL: Examination of the right hip reveals tenderness at her already limited extremes of range of motion on the right hip compared to the left. Leg lengths are equal. No straight leg raise is present. Currently, she has minimal tenderness over the trochanteric bursa. Normal examination of the contralateral left hip, bilateral knees and ankles, with intact motor function, distal pulses, sensation, reflexes and skin in both lower extremities throughout. IMAGING STUDIES: X-rays of the right hip show [id number] degenerative change in the right hip and some mild degenerative changes on the left. ASSESSMENT: Primary osteoarthritis, right hip; lumbar spinal stenosis. TREATMENT PLAN: I had previously discussed with her earlier this year risks, benefits and postoperative course of total hip arthroplasty and we had actually planned that earlier pending an upcoming vascular consultation and some other treatments for her back, but then was put off due to the COVID crisis. She is now wanting to go on with total hip arthroplasty, having verbally acknowledged the risks, benefits and postoperative course including the possibility of infection, premature wear or loosening, nerve or blood vessel damage, medical or other anesthetic complications among others. All her questions were answered and we are going to proceed with right total hip arthroplasty today with postop observation to follow. JOCELYN ARMSTRONG MD DR: GHAZAL/saba JOB#: [id number] / [id number]
[2020-03-18] MEDS ORDERED: DEXAMETHASONE SOD PHOS 4 MG/ML VIAL ONE (07:52)
[2020-03-18] MEDS ORDERED: ONDANSETRON PF 4 MG/2 ML VIAL. ONE (07:52)
[2020-03-18] MEDS: INSULIN LISPRO 300 UNITS/3 ML VIAL. SQ SCH ×3 (08:00→16:58)
[2020-03-18] MEDS ORDERED: POTASSIUM CHLORIDE 20 MEQ TABLET.ER. PO SCH (08:00)
[2020-03-18] MEDS ORDERED: GLYCOPYRROLATE 1 MG/5 ML VIAL. ONE (08:48)
[2020-03-18] MEDS ORDERED: fentaNYL PF VIAL 100 MCG/2 ML VIAL ONE (08:48)
[2020-03-18] MEDS ORDERED: NEOSTIGMINE METHYLSULFATE 5 MG/5 ML SYRINGE. ONE (08:48)
--- NOTE | 2020-03-18 09:15 | PDOC4 ---
Operative Note Operative Note Date of surgery: 03/18/2020 Preoperative diagnosis: Degenerative joint disease right hip Postoperative diagnosis: Same Operative procedure: Right total hip arthroplasty Surgeon: Abhishek Extruder: Zina travis Anesthesia: General Estimated blood loss: 75 cc Complications: None Specimens: Femoral head to pathology Drains: None Operative indications: Please see my dictated history and physical and previous clinic notes for detailed operative indications and note that we had discussed risks benefits postoperative course of total hip arthroplasty including the possibility of infection leg length inequality nerve or blood vessel damage medical or other anesthetic complications among others all her questions were answered she wishes to proceed with total hip arthroplasty having given informed consent Operative text: Patient was identified procedure verified patient placed in supine position on operating table. After adequate amounts of general anesthesia were administered she was placed decubitus right side up using the Stulberg hip positioner and all bony prominences were well-padded. The right hip was then prepped and draped in standard sterile fashion and after timeout was performed patient procedure identified and verified a curvilinear incision was made centered over the greater trochanter and the iliotibial band and gluteal fascia were split in line with their fibers a Charnley retractor was placed external rotators were divided from their insertion and hip capsule was split in a T fashion. She had significant protrusio and the hip did not readily dislocate and therefore osteotome was used to remove some of the overhanging bone the hip was dislocated femoral neck cut was made with the assistance of the femoral cutting guide the acetabulum was exposed really no contents of the fovea or labrum remained due to her severe degenerative change femoral head was sent for pathology. Reaming was carried out starting at 43 up to a size 51 mm and a 52 mm [employer] 3-hole hemispherical stick-type coated shell was impacted in proper version and a single 30 mm screw placed superiorly with excellent bite. A 36 mm acetabular liner was impacted into place the femur was reamed and broached and trial fit with a standard offset 13 mm Synergy broach with a +0 36 mm head which provided full extension excellent stability and cheondoism of leg length and offset. Trial components were removed irrigation carried out normal saline solution and a standard offset Synergy ingrowth stem was impacted into place with a +0 36 mm cobalt chromium head impacted into place to engage the Koroma taper was reduced and found equivalent leg length offset stability and motion. Intra-articular mixture was injected throughout the joint capsule I elected not to place a drain or intra-articular catheter. Hip capsule was repaired with max braid suture external rotators were reattached transosseously with max braid as well and the iliotibial band and fascia was closed with interrupted max braid suture reinforced with a running #1 PDS strata fix suture. Subcutaneous closure with buried Vicryl suture subcuticular 3-0 strata fix Monocryl and a shai dressing was placed patient was returned to recovery room in stable condition having tolerated procedure well Zina brady assist was present for the procedure and assisted in the patient positioning prepping draping retraction and closure JOCELYN ARMSTRONG MD Mar 18, 2020 09:15
[2020-03-18] MEDS: MORPHINE SULFATE 2 MG/ML VIAL. IVP PRN ×2 (10:23→23:06)
--- NOTE | 2020-03-18 11:03 | NUR ---
transferred from recovery. she is drowsy but alert. history completed. she has good motion, sensation and pulses bilateral lower extremities. LORI dressing to surgical incision is clean dry and intact. she is rating her pain "5"
--- NOTE | 2020-03-18 11:05 | RAD ---
EXAM: Right hip and pelvis, 3 views. HISTORY: Arthroplasty. COMPARISON: 01/12/2019 FINDINGS: A frontal view of the pelvis and 2 views of the right hip are obtained. There is a right hip arthroplasty in expected position. There is surrounding soft tissue gas due to recent surgery. There is degenerative change at the lower lumbar levels. There is instrumented lumbar fusion at the superior margin of the [id number]. IMPRESSION: Right hip arthroplasty in expected position. Electronically signed by: Amarilis Grossman MD (03/18/2020 11:02 AM) [id number]
[2020-03-18] MEDS: ONDANSETRON ODT 4 MG TAB.RAPDIS. PO SCH ×3 (11:50→23:37)
[2020-03-18] MEDS: ONDANSETRON PF 4 MG/2 ML VIAL. IVP SCH ×3 (11:50→23:35)
[2020-03-18] MEDS ORDERED: WARFARIN 7.5 MG TABLET. PO ONE (16:00)
[2020-03-18] MEDS: KETOROLAC 30MG VIAL 30 MG, BUPIVACAINE MPF 0.25% 20 ML, EPINEPHrine 0.5 MG in TOTAL VOL... INT ART SCH (16:45)
[2020-03-18] MEDS: oxyCODONE IR 5 MG TABLET PO PRN ×2 (16:53→21:25)
[2020-03-18] MEDS: FERROUS SULFATE 325 MG TABLET. PO SCH (16:53)
[2020-03-18] MEDS: metFORMIN 500 MG TABLET PO SCH (16:53)
[2020-03-18] MEDS: ATORVASTATIN CALCIUM 40 MG TABLET. PO SCH (20:49)
[2020-03-18] MEDS: GABAPENTIN 400 MG CAPSULE. PO SCH (21:40)
[2020-03-19] MEDS: ceFAZolin SODIUM IV Push 1 GM VIAL. IVP SCH (01:33)
[2020-03-19 02:51] VITALS: BP 103/64
[2020-03-19 05:45] VITALS: BP 98/54
[2020-03-19] MEDS: traMADol 50 MG TABLET PO SCH ×3 (05:47→17:26)
[2020-03-19] MEDS: ONDANSETRON PF 4 MG/2 ML VIAL. IVP SCH (05:51)
[2020-03-19] MEDS: ONDANSETRON ODT 4 MG TAB.RAPDIS. PO SCH (05:51)
[2020-03-19] MEDS ORDERED: GABAPENTIN 100 MG CAPSULE. PO SCH (06:00)
[2020-03-19] MEDS ORDERED: MAGNESIUM HYDROXIDE 2,400 MG/30 ML ORAL.SUSP. PO PRN (06:00)
[2020-03-19] MEDS: KETOROLAC 30MG VIAL 30 MG, BUPIVACAINE MPF 0.25% 20 ML, EPINEPHrine 0.5 MG in TOTAL VOL... INT ART SCH (06:00)
[2020-03-19 07:03] LABS: HEMATOCRIT 35.5 % (36.0-47.0); HEMOGLOBIN 11.5 g/dL (12.0-15.5)
--- NOTE | 2020-03-19 07:06 | NUR ---
Dr. Weiss here to make rounds and assess pt
[2020-03-19] MEDS: IV NORMAL SALINE 1000ML BAG 1,000 ML IV SCH (07:19)
--- NOTE | 2020-03-19 07:36 | PDOC ---
PROGRESS NOTES Subjective Subjective Problems overnight: Right hip is feeling good, her biggest complaint is some radiating left leg pain from low back area down to the left calf Objective Vital Signs Vital Signs Date Time Temp Pulse Resp B/P (MAP) Pulse Ox O2 Delivery O2 Flow Rate FiO2 03/19/20 06:50 Room Air 03/19/20 05:47 99 03/19/20 05:45 98.6 99 16 98/54 (69) 0.5 98.6 Physical Exam Leg lengths are equal distal neurovascular status intact shai dressing has no drainage no tenderness over the trochanteric bursa area on the left hip but she does seem symptomatic with a straight leg raise sign the reproduces some radiating pain in the left nonoperative leg Labs Laboratory Tests Test 03/18/20 06:57 03/18/20 07:08 03/18/20 08:39 03/18/20 09:21 Prothrombin Time 13.6 SEC (11.7-14.0) Prothromb Time International Ratio 1.1 (0.8-1.1) Activated Partial Thromboplast Time 27 SEC (24-38) Glucose (Fingerstick) 102 mg/dL (70-99) 139 mg/dL (70-99) 181 mg/dL (70-99) Test 03/18/20 11:32 03/18/20 16:44 03/18/20 21:42 03/19/20 06:27 Glucose (Fingerstick) 192 mg/dL (70-99) 267 mg/dL (70-99) 176 mg/dL (70-99) 141 mg/dL (70-99) Laboratory Tests Test 03/18/20 08:39 03/18/20 09:21 03/18/20 11:32 03/18/20 16:44 Glucose (Fingerstick) 139 mg/dL (70-99) 181 mg/dL (70-99) 192 mg/dL (70-99) 267 mg/dL (70-99) Test 03/18/20 21:42 03/19/20 06:27 Glucose (Fingerstick) 176 mg/dL (70-99) 141 mg/dL (70-99) Imaging Postop x-rays AP pelvis and right hip show well-placed total hip arthroplasty leg lengths and offset appear equal Assessment Assessment POD#1 right total hip arthroplasty Plan Plan of Care Mobilize with physical therapy weightbearing as tolerated standard total hip precautions Therapy and evaluation for her left-sided sciatica pain Justicifation of Admission Dx: Justifications for Admission: Justification of Admission Dx: Yes (Requiring IV pain medications, has left nonoperative sided sciatica pain from back to left calf area) JOCELYN ARMSTRONG MD Mar 19, 2020 07:36
[2020-03-19 07:37] LABS: PROTHROMBIN TIME PATIENT 19.1 SEC (11.7-14.0)
[2020-03-19] MEDS: INSULIN LISPRO 300 UNITS/3 ML VIAL. SQ SCH ×3 (08:00→16:48)
[2020-03-19 08:13] VITALS: BP_SYST 78; BP_SYST 80; BP_DIAS 50; BP_DIAS 54
[2020-03-19] MEDS: ASPIRIN ENTERIC COATED 81 MG TABLET.DR. PO SCH (08:16)
[2020-03-19] MEDS: MELOXICAM 7.5 MG TABLET PO SCH (08:16)
[2020-03-19] MEDS: SENNOSIDES/DOCUSATE 8.6/50MG TABLET. PO SCH (08:16)
[2020-03-19] MEDS: FERROUS SULFATE 325 MG TABLET. PO SCH ×2 (08:17→16:47)
[2020-03-19] MEDS: POTASSIUM CHLORIDE 20 MEQ TABLET.ER. PO SCH (08:17)
[2020-03-19] MEDS: MULTIVITAMIN with MINERAL TABLET. PO SCH (08:17)
[2020-03-19] MEDS: ACETAMINOPHEN 500 MG TABLET PO SCH ×3 (08:17→21:18)
[2020-03-19] MEDS: metFORMIN 500 MG TABLET PO SCH ×2 (08:17→16:47)
[2020-03-19] MEDS: LISINOPRIL 20 MG TABLET PO SCH (08:22)
[2020-03-19] MEDS: hydroCHLOROthiazide 12.5 MG CAPSULE PO SCH (08:22)
[2020-03-19] MEDS: oxyCODONE IR 5 MG TABLET PO PRN ×2 (10:09→21:18)
[2020-03-19 11:25] VITALS: BP 94/49
[2020-03-19] MEDS ORDERED: ONDANSETRON ODT 4 MG TAB.RAPDIS. PO PRN (12:00)
[2020-03-19] MEDS ORDERED: ONDANSETRON PF 4 MG/2 ML VIAL. IVP PRN (12:00)
--- NOTE | 2020-03-19 14:00 | NUR ---
Pharmacy Warfarin Dosing Note S:Pharmacy consulted to assist with anticoagulation therapy started with target INR: 1.6 - 2.5 O:NELA STARR is a 80 year old F with CHRISTIN LABS: Last INR: 1.6 Last HGB: 11.5 Last HCT: 35.5 Last PLT: Last dose of 7.5 mg given on 03/18/20 at 1654 Previous Regimen: Vitamin K given: Drug Interaction Changes: Ongoing Drug Interactions: A:INR of 1.6 is within desired range. Target range for this patient is: 1.6 - 2.5 P: Warfarin dose: 3 mg Today at 1600 Bridge Therapy: Next INR due IN AM Pharmacy anticoagulation service will continue to follow. VJ CLOUD [facility], 03/19/20 1400
[2020-03-19] MEDS ORDERED: BISACODYL 10 MG SUPP.RECT. PR PRN (16:00)
[2020-03-19] MEDS ORDERED: WARFARIN 3 MG TABLET. PO ONE (16:00)
--- NOTE | 2020-03-19 16:49 | NUR ---
Sliding scale held minimal food taken at dinnertime
[2020-03-19 17:37] VITALS: BP 106/56
[2020-03-19] MEDS: ATORVASTATIN CALCIUM 40 MG TABLET. PO SCH (21:18)
[2020-03-19] MEDS: GABAPENTIN 400 MG CAPSULE. PO SCH (21:18)
[2020-03-20] MEDS: traMADol 50 MG TABLET PO SCH ×5 (00:12→23:57)
[2020-03-20] MEDS: ACETAMINOPHEN 500 MG TABLET PO SCH ×4 (03:08→20:54)
[2020-03-20 06:23] VITALS: BP 108/51
[2020-03-20 07:10] LABS: HEMATOCRIT 32.5 % (36.0-47.0); HEMOGLOBIN 10.8 g/dL (12.0-15.5)
[2020-03-20 07:18] LABS: PROTHROMBIN TIME PATIENT 25.2 SEC (11.7-14.0)
[2020-03-20] MEDS: INSULIN LISPRO 300 UNITS/3 ML VIAL. SQ SCH ×3 (08:00→16:48)
[2020-03-20] MEDS: MELOXICAM 7.5 MG TABLET PO SCH (08:07)
[2020-03-20] MEDS: MULTIVITAMIN with MINERAL TABLET. PO SCH (08:07)
[2020-03-20] MEDS: FERROUS SULFATE 325 MG TABLET. PO SCH ×2 (08:07→16:49)
[2020-03-20] MEDS: metFORMIN 500 MG TABLET PO SCH ×2 (08:07→16:49)
[2020-03-20] MEDS: SENNOSIDES/DOCUSATE 8.6/50MG TABLET. PO SCH (08:07)
[2020-03-20] MEDS: ASPIRIN ENTERIC COATED 81 MG TABLET.DR. PO SCH (08:08)
[2020-03-20] MEDS: POTASSIUM CHLORIDE 20 MEQ TABLET.ER. PO SCH (08:08)
[2020-03-20] MEDS: hydroCHLOROthiazide 12.5 MG CAPSULE PO SCH (08:08)
[2020-03-20] MEDS: LISINOPRIL 20 MG TABLET PO SCH (08:08)
[2020-03-20 08:10] VITALS: BP 92/62
--- NOTE | 2020-03-20 08:55 | NUR ---
c/o nausea without emesis, cool washcloth to face & neck, lemon yocha dehe soda given, up in chair
--- NOTE | 2020-03-20 10:50 | NUR ---
Pharmacy Warfarin Dosing Note S:Pharmacy consulted to assist with anticoagulation therapy started 03/18/20 with target INR: 1.6 - 2.5 O:RONELA is a 80 year old F with CHRISTIN LABS: Last INR: 2.3 Last HGB: 10.8 Last HCT: 32.5 Last PLT: Last dose of 3 mg given on 03/19/20 at 1525 Previous Regimen: Vitamin K given: Drug Interaction Changes: Ongoing Drug Interactions: A:INR of 2.3 is within desired range. Target range for this patient is: 1.6 - 2.5 P: Warfarin dose: 1 mg Today at 1600 Bridge Therapy: None Next INR due 03/21/20. Pharmacy anticoagulation service will continue to follow. DEONNA REED [facility], 03/20/20 105
[2020-03-20] MEDS ORDERED: WARFARIN 1 MG TABLET. PO ONE (16:00)
[2020-03-20 17:45] VITALS: BP 120/62
--- NOTE | 2020-03-20 18:06 | PATHOLOGY ---
[facility] Accession Number: [id number] . 01 Material submitted: . hip - RIGHT FEMORAL HEAD. Modifiers: right . 01 Clinical history: . Degenerative right hip . 02 Diagnosis: Femoral head, right total hip arthroplasty: - Degenerative arthritis. ([facility] 03/20/2020) [facility] 03/20/2020 1340 Local . 02 Comment: There is no evidence of malignancy. ([facility] 03/20/2020) . 02 Electronically signed: . Bucky Azul MD, Pathologist NPI- [id number] . 01 Gross description: . The specimen is received in formalin, labeled "Fide Wylie, right femoral head". Received is a femoral head with attached femoral neck measuring 4.3 x 4.3 x 5.1 cm in greatest dimensions. There is a slight amount of attached soft tissue at the distal aspect measuring 2.4 x 0.7 x 0.3 cm. The articular surface is granular in appearance with no gross evidence of eburnation. A slight amount of osteophytic lipping is identified. Sectioning reveals yellow-jones to pink-jones cut surfaces with no grossly distinct nodules or lesions. The specimen is submitted representatively in cassette A1, following decalcification. ([facility]; 03/19/2020) [facility] 03/20/2020 1339 Local . 02 Pathologist provided ICD-10: M16.11 . 02 CPT . 631828, [id number] Specimen Comment: A courtesy copy of this report has been sent to [phone], [phone] Specimen Comment: [id number] Specimen Comment: Report sent to / DR VILLASENOR Performed at: [address], [place], [place] [id number] MD Cal Zavala MD Phone: [phone] Performed at: [address] [id number] MD Bucky Azul MD Phone: [phone]
[2020-03-20] MEDS: ATORVASTATIN CALCIUM 40 MG TABLET. PO SCH (20:54)
[2020-03-20] MEDS: GABAPENTIN 400 MG CAPSULE. PO SCH (20:54)
--- NOTE | 2020-03-20 22:24 | PDOC ---
PROGRESS NOTES Subjective Subjective Problems overnight: Doing very well, a lot less pain than she expected Objective Vital Signs Vital Signs Date Time Temp Pulse Resp B/P (MAP) Pulse Ox O2 Delivery O2 Flow Rate FiO2 03/20/20 20:04 Room Air 03/20/20 17:45 98.0 96 120/62 (81) 98.0 03/20/20 06:23 18 96 03/19/20 05:45 0.5 Physical Exam Lionel dressing clean dry intact leg lengths equal distal neurovascular status intact Labs Laboratory Tests Test 03/19/20 06:20 03/19/20 06:27 03/19/20 11:24 03/19/20 16:29 Hemoglobin 11.5 g/dL (12.0-15.5) Hematocrit 35.5 % (36.0-47.0) Mean Corpuscular Hemoglobin Concent 33 g/dL (31-37) Prothrombin Time 19.1 SEC (11.7-14.0) Prothromb Time International Ratio 1.6 (0.8-1.1) Glucose (Fingerstick) 141 mg/dL (70-99) 129 mg/dL (70-99) 153 mg/dL (70-99) Test 03/19/20 21:38 03/20/20 06:26 03/20/20 06:42 03/20/20 11:17 Glucose (Fingerstick) 140 mg/dL (70-99) 129 mg/dL (70-99) 141 mg/dL (70-99) Hemoglobin 10.8 g/dL (12.0-15.5) Hematocrit 32.5 % (36.0-47.0) Mean Corpuscular Hemoglobin Concent 33 g/dL (31-37) Prothrombin Time 25.2 SEC (11.7-14.0) Prothromb Time International Ratio 2.3 (0.8-1.1) Test 03/20/20 16:23 03/20/20 21:09 Glucose (Fingerstick) 128 mg/dL (70-99) 130 mg/dL (70-99) Laboratory Tests Test 03/20/20 06:26 03/20/20 06:42 03/20/20 11:17 03/20/20 16:23 Glucose (Fingerstick) 129 mg/dL (70-99) 141 mg/dL (70-99) 128 mg/dL (70-99) Hemoglobin 10.8 g/dL (12.0-15.5) Hematocrit 32.5 % (36.0-47.0) Mean Corpuscular Hemoglobin Concent 33 g/dL (31-37) Prothrombin Time 25.2 SEC (11.7-14.0) Prothromb Time International Ratio 2.3 (0.8-1.1) Test 03/20/20 21:09 Glucose (Fingerstick) 130 mg/dL (70-99) Assessment Assessment POD#2 right total hip arthroplasty Plan Plan of Care Doing much better today Plan Home with home health on discharge Justicifation of Admission Dx: Justifications for Admission: Justification of Admission Dx: Yes (Requiring IV pain medications, has left nonoperative sided sciatica pain from back to left calf area) JOCELYN ARMSTRONG MD Mar 20, 2020 22:24
[2020-03-21] MEDS: ACETAMINOPHEN 500 MG TABLET PO SCH ×2 (02:41→08:03)
[2020-03-21] MEDS: traMADol 50 MG TABLET PO SCH ×2 (06:28→11:55)
[2020-03-21 06:32] VITALS: BP 114/58
[2020-03-21] MEDS ORDERED: TRAM50TA PO (06:45)
[2020-03-21] MEDS ORDERED: WARF3TAB50 PO (06:45)
--- NOTE | 2020-03-21 06:51 | SNU/HH DC ---
DISCHARGE WITH HOME HEALTH DISCHARGE INFORMATION: Condition on Discharge: Stable CODE STATUS: Code Status: Full HOME HEALTH: Face to Face: I certify this patient is under my care and that I, or a nurse practitioner or physician's process assistant working with me, had a face to face encounter that meets the physician face to face encounter requirements with this patient on [03/21/20]. Medical Complications: S/P Joint Replacement RN For Eval/Treatment: Yes Physical Therapy For: Evalulation/Treatment Pt Meets Homebound Status: Limited distance walking POST DISCHARGE ORDERS: Activity Instructions for Disc: Other, see below (Standard total hip precautions avoid flexion past 90 degrees or internal rotation of right hip) Weight Bearing Status after Di: As tolerated Wound/Incision Care: Ice to area for comfort, Do not change dressing (Keep shai dressing intact report if saturated, may remove suction when battery quits in 1 week and keep dressing on but tape over outlet to keep sealed) FOLLOW-UP: Follow up with: Dr. Weiss 2 weeks postoperatively Warfarin Follow UP: Instructions per [facility] anticoagulation clinic TREATMENT/EQUIPMENT ORDERS: Adaptive Equipment Issued: Walker CERTIFICATION STATEMENT: Certification Statement: Certification Statement: Based on the above finding, I certify that this patient is confined to the home and needs intermittent fpc care, physical therapy and/or speech therapy, or continues to need occupational therapy.~ This patient is under my care, and I have initiated the establishment of the plan of care.~ This patient will be followed by myself or a community physician who will periodically review the plan of care. Home Meds Active Scripts Hydrocodone/Apap 5-325 (NORCO 5-325 TABLET) 1 Each Tablet, 1 TAB PO PRN Q6HRS PRN for PAIN, #15 TAB 0 Refills Prov:GUNNAR HUGO DO 11/11/19 Reported Medications Hydrochlorothiazide (HYDROCHLOROTHIAZIDE CAPSULE ) 12.5 Mg Capsule, 12.5 MG PO DAILY for DIURETIC, CAP 0 Refills 03/12/20 Gabapentin (GABAPENTIN ) 400 Mg Capsule, 400 MG PO HS for NEUROGENIC PAIN, CAP 03/12/20 Aspirin (ASPIRIN EC) 81 Mg Tablet.dr, 1 TAB PO DAILY for blood thinner, #30 TAB 3 Refills 03/12/20 Quinapril Hcl (QUINAPRIL HCL) 40 Mg Tablet, 1 TAB PO DAILY for htn for 30 Days, #30 TAB 0 Refills 03/12/20 Calcium Carbonate/Vitamin D3 (CALCIUM + VITAMIN D TABLET) 1 Each Tablet, 1 EACH PO DAILY for SUPPLEMENT, TAB 03/13/19 Metformin Hcl (METFORMIN HCL) 1,000 Mg Tablet, 500 MG PO BID for ANTI-DIABETIC, TAB 0 Refills 03/13/19 Atorvastatin Calcium (ATORVASTATIN CALCIUM) 40 Mg Tablet, #90 12/06/16 Potassium Chloride (POTASSIUM CHLORIDE) 10 Meq Tablet.er, 20 QD for suppliment, #90 12/06/16 JOCELYN WEISS MD Mar 21, 2020 06:51
[2020-03-21 07:03] LABS: HEMATOCRIT 28.6 % (36.0-47.0); HEMOGLOBIN 9.5 g/dL (12.0-15.5)
[2020-03-21 07:06] LABS: PROTHROMBIN TIME PATIENT 22.6 SEC (11.7-14.0)
[2020-03-21] MEDS: INSULIN LISPRO 300 UNITS/3 ML VIAL. SQ SCH ×2 (07:06→11:54)
[2020-03-21] MEDS: SENNOSIDES/DOCUSATE 8.6/50MG TABLET. PO SCH (07:59)
[2020-03-21] MEDS: ASPIRIN ENTERIC COATED 81 MG TABLET.DR. PO SCH (07:59)
[2020-03-21] MEDS: MULTIVITAMIN with MINERAL TABLET. PO SCH (08:00)
[2020-03-21] MEDS: MELOXICAM 7.5 MG TABLET PO SCH (08:00)
[2020-03-21] MEDS: FERROUS SULFATE 325 MG TABLET. PO SCH (08:00)
[2020-03-21] MEDS: metFORMIN 500 MG TABLET PO SCH (08:00)
[2020-03-21] MEDS: POTASSIUM CHLORIDE 20 MEQ TABLET.ER. PO SCH (08:00)
[2020-03-21 08:02] VITALS: BP 98/58
[2020-03-21] MEDS: LISINOPRIL 20 MG TABLET PO SCH (08:02)
[2020-03-21] MEDS: hydroCHLOROthiazide 12.5 MG CAPSULE PO SCH (08:02)
--- NOTE | 2020-03-21 11:31 | NUR ---
Pharmacy Warfarin Dosing Note S:Pharmacy consulted to assist with anticoagulation therapy started 03/18/20 with target INR: 1.6 - 2.5 O:RONELA is a 80 year old F with [facility] LABS: Last INR: 2.0 Last HGB: 9.5 Last HCT: 28.6 Last PLT: Last dose of 1 mg given on 03/20/20 at 1649 Previous Regimen: Vitamin K given: Drug Interaction Changes: Ongoing Drug Interactions: A:INR of 2.0 is within desired range. Target range for this patient is: 1.6 - 2.5 P: Warfarin dose: 3 mg Today at 1400 Bridge Therapy: None Next INR due Tuesday by [facility]. Pharmacy anticoagulation service will continue to follow. Ben Jewell [facility], 03/21/20 [id number]
--- NOTE | 2020-03-21 12:15 | NUR ---
Patient will low BP this morning in which her morning BP medications were held. Looks like patient has been running low the past couple of days. Will add in discharge instructions to monitor BP and follow up with front desk monitor or PCP for BP medication adjustment if needed. Patient refused tylenol this morning stating the tramadol was taking care of her pain well. Will continue to monitor.
--- NOTE | 2020-03-21 13:55 | NUR ---
Patient left with her daughter around 1350. Discharge education completed by this nurse, therapy, the doctor, and pharmacy prior to their dismissal. LORI dressing details gone over in detail with the patient and her daughter. Coumadin given to the patient prior to dismissal and home dosage given to the patient by pharmacy. Script given to patient for tramadol. Hip precautions gone over again in detail. Medications reviewed and patient/daughter aware of low blood pressures. Patient teaching done on checking blood pressures prior to taking medications and following up with her PCP. No concerns from the patient or her daughter at discharge.
[2020-03-21] MEDS ORDERED: WARFARIN 3 MG TABLET. PO ONE (14:00)
--- NOTE | 2020-03-23 10:05 | DS ---
DATE OF DISCHARGE: 03/21/2020 Date of operation is 03/18/2020. PRINCIPAL DIAGNOSIS: Degenerative joint disease of the right hip. PROCEDURE: Right total hip arthroplasty. DISPOSITION: Home with home health. ACTIVITY: Weightbearing as tolerated, standard total hip precautions on the right. FOLLOWUP: Follow up with Dr. Weiss in 2 weeks postoperatively. DISPOSITION AND MEDICATIONS: Tramadol 50 mg q. 4 hours p.r.n. pain, warfarin as directed by anticoagulation clinic, resume preoperative medications. BRIEF DESCRIPTION OF HOSPITAL COURSE: The patient underwent an uncomplicated right total hip arthroplasty and had a complaint initially postoperatively, but radiating left pain from her low back area down to the left calf. Pain medications and treatment for the left-sided sciatica pain were initiated. She progressed well after that and obtained safety with her ambulation and transfers and was discharged home with home health followup planned in stable condition on 03/21/2020. JOCELYN WEISS MD DR: GHAZAL/saba JOB#: [id number] / [id number]
== END 2020-03-21 14:00 | disposition home health service (06) | DRG 470 ==
LOC: SURG 05:43 → 4 SOUTHEST 09:27 → OBSVTOIN 03-19 17:43
PROVIDERS: ADMIT Orthopaedic Surgery; ATTEND Orthopaedic Surgery
PROC: 0SR90JZ Replacement of Right Hip Joint with Synthetic Substitute, Open Approach (ICD-10-PCS; principal; 2020-03-18 07:30)
DX: M16.11 Unilateral primary osteoarthritis, right hip (principal); E11.9 Type 2 diabetes mellitus without complications; E78.00 Pure hypercholesterolemia, unspecified; E78.5 Hyperlipidemia, unspecified; I10 Essential (primary) hypertension; M54.42 Lumbago with sciatica, left side; M41.9 Scoliosis, unspecified; M48.061 Spinal stenosis, lumbar region without neurogenic claudication; Z88.1 Allergy status to other antibiotic agents; Z88.8 Allergy status to other drugs, medicaments and biological substances
CPT/HCPCS: 36415; 73502; 82962; 85014; 85018; 85610; 85730; 86850; 86900; 86901; 88304; 88311; A7015; G0378; G0379; J0171; J0690; J1100; J1815; J1885; J2270; J2370; J2405; J2704; J2710; J2795; J3010; J3490; J7030; 97116-GP; 97150-GP; 97530-GP; 97535-GO; Q0163